=== PATIENT | female | born 1970 | race American Indian/Alaskan Native ===

== ENCOUNTER 2017-11-14 09:59 | Emergency (ER) | payer SELFPAY ==
[2017-11-14] MEDS ORDERED: TYLENOL ONE (10:23)
[2017-11-14] MEDS ORDERED: TYLENOL PO ONE (10:27)
[2017-11-14] MEDS ORDERED: TORADOL IV ONE (12:38)
[2017-11-14] MEDS ORDERED: NACL 0.9% 1000 ML 2,000 ML IV ONE (12:38)
--- NOTE | 2017-11-14 12:43 | Emergency Department Report ---
ED General Adult HPI - General Chief complaint: Fever Stated complaint: FLU LIKE SYMPTOMS Time Seen by Provider: 11/14/17 12:23 Source: patient, RN notes reviewed Mode of arrival: Ambulatory Limitations: No Limitations - History of Present Illness Initial comments: This is a 47-year-old female who was previously unknown to this provider, her primary care doctor is Dr. Murphy. Patient presents to the ER with a complaint of sore throat, cough, chest wall pain with coughing, body aches, fever, malaise, fatigue for 6 days. Her symptoms are constant, they do not radiate anywhere, the increased with palpation, they decrease with rest. Patient denies urinary symptoms, patient indicates she has not had a flu shot this year, she also indicates no pulmonary embolus or DVT risk factors. -: days(s) Location: chest, back, left, right, upper extremity Radiation: distal Severity scale (0 -10): 0 Quality: aching Consistency: intermittent Improves with: rest Worsens with: movement Associated Symptoms: chest pain, cough, fever/chills, loss of appetite, malaise , weakness. denies: confusion, diaphoresis, shortness of breath - Related Data Previous Rx's Medication Instructions Recorded Last Taken Type Acetaminophen [Tylenol Arthritis] 650 mg PO Q6HR PRN #30 tablet.er 11/14/17 Unknown Rx Benzonatate [Tessalon Perles] 100 mg PO Q8HR PRN #30 capsule 11/14/17 Unknown Rx Fluticasone [Flonase] 1 spray NS QDAY #1 bottle 11/14/17 Unknown Rx Ibuprofen [Motrin] 600 mg PO Q8H PRN #30 tablet 11/14/17 Unknown Rx Allergies Allergy/AdvReac Type Severity Reaction Status Date / Time amoxicillin AdvReac Itching Verified 11/14/17 10:27 pseudoephedrine AdvReac Angioedema Verified 11/14/17 10:20 [From [facility]] ED Review of Systems ROS: Stated complaint: FLU LIKE SYMPTOMS Other details as noted in HPI ED Past Medical Hx - Past Medical History Previous Medical History?: No - Surgical History Past Surgical History?: Yes Additional Surgical History: tubal,hysterectomy - Social History Smoking Status: Never Smoker Substance Use Type: Alcohol - Medications Home Medications: Home Medications Medication Instructions Recorded Confirmed Last Taken Type Acetaminophen [Tylenol Arthritis] 650 mg PO Q6HR PRN #30 tablet.er 11/14/17 Unknown Rx Benzonatate [Tessalon Perles] 100 mg PO Q8HR PRN #30 capsule 11/14/17 Unknown Rx Fluticasone [Flonase] 1 spray NS QDAY #1 bottle 11/14/17 Unknown Rx Ibuprofen [Motrin] 600 mg PO Q8H PRN #30 tablet 11/14/17 Unknown Rx ED Physical Exam - General Limitations: No Limitations General appearance: alert, in no apparent distress - Head Head exam: Present: atraumatic, normocephalic - Eye Eye exam: Present: normal appearance, EOMI. Absent: nystagmus - ENT ENT exam: Present: normal exam, normal orophraynx, mucous membranes moist, normal external ear exam, other (patient speaking in full sentences, there is no stridor or dysphonia. There are no pharyngeal exudates.) - Neck Neck exam: Present: normal inspection, full ROM. Absent: tenderness, meningismus, lymphadenopathy - Respiratory Respiratory exam: Present: normal lung sounds bilaterally, chest wall tenderness. Absent: respiratory distress - Cardiovascular Cardiovascular Exam: Present: normal rhythm, tachycardia, normal heart sounds. Absent: systolic murmur, diastolic murmur, rubs, gallop - GI/Abdominal GI/Abdominal exam: Present: soft, normal bowel sounds. Absent: distended, tenderness, guarding, rebound, rigid, pulsatile mass - Extremities Exam Extremities exam: Present: normal inspection, full ROM, normal capillary refill. Absent: pedal edema, joint swelling, calf tenderness - Back Exam Back exam: Present: normal inspection, full ROM. Absent: tenderness, CVA tenderness (R), paraspinal tenderness, vertebral tenderness - Neurological Exam Neurological exam: Present: alert, oriented X3, CN II-XII intact, normal gait, other (Extraocular movements intact. Tongue midline. No facial droop. Facial sensation intact to light touch in the V1, V2, V3 distribution bilaterally. 5 and 5 strength in 4 extremities.. Sensation is intact to light touch in 4 extremities.). Absent: motor sensory deficit - Psychiatric Psychiatric exam: Present: normal affect, normal mood - Skin Skin exam: Present: warm, dry, intact, normal color. Absent: rash ED Course Vital Signs 11/14/17 11/14/17 11/14/17 10:17 12:22 15:02 Temperature 102.8 F H 99.7 F H 99.1 F Pulse Rate 136 H 117 H 102 H Respiratory 18 18 16 Rate Blood Pressure 137/85 Blood Pressure 123/76 112/74 [Left] O2 Sat by Pulse 99 98 98 Oximetry - Reevaluation(s) Reevaluation #1: 11/14/17 12:41 Differential diagnosis, including but not limited to: Pneumonia, bronchitis, pericarditis, myocarditis, influenza-like illness Assessment and plan: 47-year-old female with fever, tachycardia, constitutional symptoms suggestive of influenza-like illness. Has reproducible chest wall tenderness. No pulmonary embolus or DVT risk factors, low risk by well's criteria, low risk by STEPHANIE score, low risk by heart score. Patient still tachycardic and has a low-grade temperature. Does not have symptoms to suggest anemia. Check basic metabolic panel to assess renal function, creatinine kinase, troponin, EKG, x-ray of the chest. Symptoms present for greater than 72 hours, therefore no utility in screening for influenza, as the patient is not a Tamiflu candidate. Reevaluation #2: 11/14/17 13:30 X-ray the chest is negative. Nursing staff has attempted multiple times to get IV, they are unsuccessful. Therefore, patient will be given oral hydration, as she is tolerating oral feeds , and her Toradol will be given intramuscularly. Patient encouraged to drink copious quantity of fluid. Reevaluation #3: 11/14/17 15:09 Patient feels dramatically improved. Resting heart rate now 102 bpm. Patient tolerating oral feeds. Patient suitable for discharge at this time, she will be discharged, return precautions are reviewed. ED Medical Decision Making - Lab Data Result diagrams: 11/14/17 13:26 Vital Signs 11/14/17 11/14/17 10:17 12:22 Temperature 102.8 F H 99.7 F H Pulse Rate 136 H 117 H Respiratory 18 18 Rate Blood Pressure 137/85 Blood Pressure 123/76 [Left] O2 Sat by Pulse 99 98 Oximetry - EKG Data EKG shows normal: sinus rhythm Rate: tachycardia - EKG Data When compared to previous EKG there are: previous EKG unavailable 11/14/17 12:47 Sinus tachycardia, 110 bpm, QTC prolonged, normal axis, not morphologically consistent with ST elevation myocardial infarction. - Radiology Data Radiology results: pending, image reviewed interpreted by me: X-ray of the chest, interpreted by me: No acute disease Critical care attestation.: If time is entered above; I have spent that time in minutes in the direct care of this critically ill patient, excluding procedure time. ED Disposition Clinical Impression: Influenza-like illness Disposition: DC-01 TO HOME OR SELFCARE Is pt being admited?: No Does the pt Need Aspirin: No Condition: Stable Instructions: Influenza (ED) Additional Instructions: As we discussed, symptoms likely coming from influenza, influenza-like illness. There is typically for this. Take the medications as needed/directed. Follow -up with your primary care doctor within the next 7-10 days. Return to the ER right away with new pain, worsened pain, migration of pain, lethargy, irritability, projectile vomiting, change in mental status, confusion, inability to tolerate liquid feeds. Referrals: PRIMARY CAREMD [Primary Care Provider] - 3-5 Days LV MURPHY JR, MD [Staff Physician] - 3-5 Days
[2017-11-14] MEDS ORDERED: TORADOL IM ONE (13:30)
--- NOTE | 2017-11-14 13:49 | XRay Report ---
XRAY CHEST TWO VIEWS: 11/14/17 09:59:00 CLINICAL: Cough and fever. COMPARISON: None FINDINGS: Normal heart and pulmonary vasculature. The lungs are normally expanded and clear.The bones and soft tissues are unremarkable. IMPRESSION: Normal chest.
[2017-11-14 13:55] LABS: BUN/Creatinine Ratio 8; Blood Urea Nitrogen 6 mg/dL (7-17); Calcium 8.8 mg/dL (8.4-10.2); Hemolysis Index 0
[2017-11-14 15:03] VITALS: BP 112/74
== END 2017-11-14 15:46 | disposition home or self-care (01) ==
LOC: ED 09:59
DX: J02.9 Acute pharyngitis, unspecified (principal); R05 Cough; R07.89 Other chest pain; Z88.1 Allergy status to other antibiotic agents; Z88.8 Allergy status to other drugs, medicaments and biological substances; Z98.51 Tubal ligation status; Z90.710 Acquired absence of both cervix and uterus
CPT/HCPCS: 36415; 71046; 80048; 82550; 84484; 93005; 93010; 96372; 99284; J1885; J7030